=== PATIENT | female | born 1980 ===

== ENCOUNTER 2017-10-11 08:35 | Day surgery (SDC) | payer OTHER ==
[2017-10-11] MEDS ORDERED: DICLOFENAC POTA50 MG PO (13:18)
[2017-10-11] MEDS ORDERED: ZITHROMAX500 MG PO (13:18)
== END 2017-10-11 17:37 | disposition home or self-care (01) ==
LOC: CIR.AMB 08:35
DX: O02.1 Missed abortion (principal)